=== PATIENT | female | born 1995 | race African-American/Black ===

== ENCOUNTER 2017-08-30 22:50 | Emergency (ER) | payer OTHER ==
[~2017-08-30] VITALS: Ht 165.1 cm; Wt 98.1 kg
[2017-08-30] MEDS ORDERED: FLEXERIL10 MG PO (23:36)
[2017-08-31 00:03] VITALS: BP 116/72
== END 2017-08-31 00:03 | disposition home or self-care (01) ==
LOC: EME 22:50
DX: S39.012A Strain of muscle, fascia and tendon of lower back, initial encounter (principal); S16.1XXA Strain of muscle, fascia and tendon at neck level, initial encounter; S41.012A Laceration without foreign body of left shoulder, initial encounter; V47.0XXA Car driver injured in collision with fixed or stationary object in nontraffic accident, initial encounter; Y92.488 Other paved roadways as the place of occurrence of the external cause